=== PATIENT | male | born 1965 | race Caucasian/White ===

== ENCOUNTER → 2019-07-29 | Outpatient (CLI) | payer BC ==
[~2019-07-29] MED LIST: IOHEXOL 350 MG/ML 100 ML VIAL. IV ONE
--- NOTE | 2019-07-29 09:07 | CARD ---
MR#: [id number] Date of Study: 07/29/2019 Ordering Physician: RENETTA MESA, Referring Physician: RENETTA MESA, Tech: Nelly Ramírez FELICITY APPROVED REPORT EXAM: Two-dimensional and M-mode echocardiogram with Doppler and color Doppler. Other Information Quality : Good INDICATION Hypertension/HCVD 2D DIMENSIONS RVDd3.3 (2.9-3.5cm)Left Atrium(2D)3.7 (1.6-4.0cm) IVSd1.1 (0.7-1.1cm)Aortic Root(2D)3.0 (2.0-3.7cm) LVDd5.3 (3.9-5.9cm)LVOT Diameter2.1 (1.8-2.4cm) PWd1.1 (0.7-1.1cm)LVDs3.2 (2.5-4.0cm) FS (%) 39.7 %SV95.1 ml LVEF(%)60.0 (>50%) Aortic Valve AoV Peak Abel.156.0cm/sAoV VTI28.5cm AO Peak GR.9.7mmHgLVOT Peak Abel.154.1cm/s LVOT VTI 28.61cmAO Mean GR.5mmHg SATURNINO (VMAX)3.74xq9MQP (VTI)3.47cm2 Mitral Valve MV E Dzxkfuwn25.2cm/sMV DECEL BALI042lp MV A Hudwpuva25.6cm/sE/A Ratio0.9 Tricuspid Valve TR P. Znkbrwve318ef/sRAP VQHKWCRE4soYw TR Peak Gr.16ltAsEXHB43xfQv Pulmonary Vein S1 Skxsfmza49.0cm/sD2 Frmojukc06.2cm/s LEFT VENTRICLE The left ventricle is normal size. There is normal left ventricular wall thickness. The left ventricu lar systolic function is normal and the ejection fraction is within normal range. The Ejection Fracti on is 60-65%. There is normal LV segmental wall motion. Transmitral Doppler flow pattern is Grade I-a bnormal relaxation pattern. RIGHT VENTRICLE The right ventricle is normal size. The right ventricular systolic function is normal. ATRIA The left atrium size is normal. The right atrium size is normal. The interatrial septum is intact wit h no evidence for an atrial septal defect or patent foramen ovale as noted on 2-D or Doppler imaging. AORTIC VALVE The aortic valve is normal in structure and function. Doppler and Color Flow revealed no significant aortic regurgitation. There is no significant aortic valvular stenosis. MITRAL VALVE The mitral valve is calcified but opens well. There is no evidence of mitral valve prolapse. There is no mitral valve stenosis. Doppler and Color-flow revealed trace mitral regurgitation. TRICUSPID VALVE The tricuspid valve is normal in structure and function. Doppler and Color Flow revealed trace tricus pid regurgitation. The PA pressure was estimated at 22 mmHg. There is no tricuspid valve stenosis. PULMONIC VALVE The pulmonic valve is not well visualized. Doppler and Color Flow revealed no pulmonic valvular regur gitation. There is no pulmonic valvular stenosis. GREAT VESSELS The aortic root is normal in size. The ascending aorta is normal in size. The IVC is normal in size a nd collapses >50% with inspiration. PERICARDIAL EFFUSION There is no evidence of significant pericardial effusion. Critical Notification Critical Value: No <Conclusion> The left ventricle is normal size. The left ventricular systolic function is normal and the ejection fraction is within normal range. The Ejection Fraction is 60-65%. Doppler and Color Flow revealed no significant aortic regurgitation. There is no significant aortic valvular stenosis. Doppler and Color-flow revealed trace mitral regurgitation. Doppler and Color Flow revealed trace tricuspid regurgitation. The PA pressure was estimated at 22 mmHg. Signed by : Heraclio Garcia MD Electronically Approved : 07/29/2019 09:06:53
--- NOTE | 2019-07-29 10:13 | RAD ---
Chest CTA History: Hypertension, thoracic aortic aneurysm Technique: After bolus of intravenous contrast, CT imaging was performed of the chest. Multiplanar reconstruction images to include MIP reconstruction images are submitted. Exposure: One or more of the following individualized dose reduction techniques were utilized for this examination: 1. Automated exposure control 2. Adjustment of the mA and/or kV according to patient size 3. Use of iterative reconstruction technique. Comparison: 04/18/2017 Findings: Proximal descending thoracic aorta is unchanged about 3.7 cm maximal transverse dimension. There is again tapering to normal caliber, distally about 2.3 cm Aortic root measures about 3.5 cm and tubular ascending thoracic aorta about 3.4 cm. There is no dissection flap of the thoracic aorta. There is no pleural or pericardial fluid, pneumothorax, lobar infiltrate, or new suspicious pulmonary nodularity. Major airways are patent. There is mild coronary calcification. There is a 0.2 cm superior right renal calculus. There is severe narrowing of the left T5-T6 neural foramen by facet degenerative change. Impression: 1. 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 2. There is small right renal calculus. Electronically signed by: Mustapha Aleman MD (07/29/2019 10:10 AM) [id number]
== END | disposition home or self-care (01) ==
LOC: ECHO 07:45
PROVIDERS: ATTEND Internal Medicine Cardiovascular Disease
DX: I25.10 Atherosclerotic heart disease of native coronary artery without angina pectoris (principal); I10 Essential (primary) hypertension; I71.2 Thoracic aortic aneurysm, without rupture; N20.0 Calculus of kidney; M48.04 Spinal stenosis, thoracic region
CPT/HCPCS: 71275; 93306; Q9967